=== PATIENT | male | born 1995 | race Caucasian/White ===

== ENCOUNTER 2024-02-12 10:58 | Outpatient (CLI) | payer BC, SELFPAY ==
--- NOTE | ~2024-02-12 | MR_ITS ---
EXAMINATION: MR brain/brain stem wo/w con DATE: 02/12/2024 11:40 INDICATION: Ptosis of eyelid. Right hemiparesis. TECHNIQUE: Magnetic resonance imaging (MRI) of the brain and brainstem was performed without and with 20 mL MultiHance intravenous contrast. COMPARISON: None. FINDINGS: There is no intracranial hemorrhage, acute infarction, or abnormal intracranial mass lesion . The ventricles are normal in size. There is mucosal thickening in the paranasal sinuses. The orbits are normal. The mastoid air cells are normal. IMPRESSION: 1. Normal brain. Reviewed, dictated and finalized at location A. ISH INSTRUCTOR IMPRESSION: 1. Normal brain.
== END 2024-02-12 10:59 | disposition home or self-care (01) ==
PROVIDERS: Visit Provider Physician Assistant
DX: H02.409 Unspecified ptosis of unspecified eyelid (principal)
CPT/HCPCS: 70553; A9577

== ENCOUNTER 2024-02-13 19:46 | Emergency (ER) | payer BC, SELFPAY ==
--- NOTE | ~2024-02-13 | XR_ITS ---
EXAMINATION: XR chest 2V DATE: 02/13/2024 20:09 INDICATION: Shortness of breath. TECHNIQUE: Frontal and lateral views of the chest were obtained. COMPARISON: None. FINDINGS: There is no pneumonia, pleural effusion, or pneumothorax. The heart size is normal. IMPRESSION: 1. No acute cardiopulmonary disease. Reviewed, dictated and finalized at location A. NOLOGY APPLICATIONS TEACHER
[2024-02-13 19:50] VITALS: BP 160/89; PULSE 60; RESP 16; TEMP 37.2; O2SAT 100
--- NOTE | 2024-02-13 19:52 | ECG_ITS ---
Test Date: 2024-02-13 20:02:41 Measurements Intervals [place] Rate: 122 P: 56 [place]: 127 QRS: 30 QRSD: 82 T: 4 QT: 338 QTc: 482 Interpretive Statements SINUS TACHYCARDIA BORDERLINE ST-T WAVE ABNORMALITY- INF/LAT LEADS BASELINE ARTIFACT- I, III, AVR, AVL ABNORMAL ECG No previous ECG available for comparison Electronically Signed On 02-14-2024 07:40:31 AUTOMOBILE SALES REPRESENTATIVE by Zackery Nixon D.O.
[2024-02-13 20:05] LABS: Basophils Absolute Auto 0.1 K/mm3 (0.0-0.1); Basophils Percent Auto 0.6 % (0.2-1.2); Eosinophils Absolute Auto 0.4 K/mm3 (0-0.3); Eosinophils Percent Auto 3.2 % (0-4.4); Hematocrit 51.3 % (42.0-52.0); Hemoglobin 17.6 g/dL (14.0-18.0); Immature Granulocyte Absolute 0.02 K/mm3 (0.00-0.031); Immature Granulocyte Percent A 0.2 % (0-0.5); Lymphocytes Absolute Auto 5.01 K/mm3 (0.9-3.2); Lymphocytes Percent Auto 39.8 % (18.3-44.2); Mean Corpuscular HGB Conc 34.3 g/dl (32-36); Mean Corpuscular Volume 90.5 fl (80-100); Mean Platelet Volume 10.6 fl (7.4-10.4); Monocytes Absolute Auto 0.8 K/mm3 (0.1-0.6); Monocytes Percent Auto 6.3 % (2.6-8.5); Neutrophils Absolute Auto 6.3 K/mm3 (1.3-6.7); Neutrophils Percent Auto 49.9 % (45.5-73.1); Platelet Count Result 249 k/mm3 (150-375); Red Blood Count 5.67 M/mm3 (4.6-6.20); Red Cell Distribution Width 13.1 % (11.5-14.5); White Blood Count 12.6 K/mm3 (4.5-10.0)
[2024-02-13 20:16] LABS: Alanine Aminotransferase 26 U/L (6-50); Albumin Level 4.3 g/dL (3.5-5.1); Alkaline Phosphatase 131 U/L (38-126); Anion Gap 9 mmol/L (4-12); Aspartate Amino Transferase 35 U/L (17-59); Bilirubin,Total 1.1 mg/dL (0.2-1.3); Blood Urea Nitrogen 13 mg/dL (9-20); Calcium 8.7 mg/dL (8.4-10.2); Carbon Dioxide 22 mmol/L (22-30); Chloride 104 mmol/L (98-107); Estimated CRCL calculation 108 ml/min; Estimated Glomerular Filt Rate > 60; Glucose 125 mg/dL (65-110); Potassium 3.8 mmol/L (3.4-5.0); Sodium 135 mmol/L (137-145)
[2024-02-13 23:36] VITALS: BP 142/92; PULSE 103; RESP 15; O2SAT 97
[2024-02-14 00:21] VITALS: BP 147/111; PULSE 105; PULSE 95; RESP 17; O2SAT 100
[2024-02-14 01:20] LABS: Influenza A QL RT-PCR Negative (Negative); Influenza B QL RT-PCR Negative (Negative); RSV RNA, RT-PCR Negative (Negative); SARS-CoV-2 RNA PCR Negative (Negative)
[2024-02-14 02:29] VITALS: BP 142/95; PULSE 83; RESP 16; O2SAT 100
[2024-02-14 02:43] LABS: D Dimer < 0.27 ug/mL (<0.48)
--- NOTE | 2024-02-14 03:05 | ED.SOB ---
HPI - SOB/Dyspnea General Chief Complaint: Shortness of Breath/Dyspnea Stated Complaint: SOB, tingling Time Seen by Provider: 02/14/24 00:11 History of Present Illness HPI Narrative: 28-year-old male presenting to the emergency department chief complaint of shortness of breath. He states for last several days he has been having episodes of shortness of breath that wake him up from sleep. patient states that he has no chest pain or present difficulty breathing while sitting in the emergency department. States he has been evaluated by his primary care provider for some weakness and is being referred to a neurologist. Had an MRI yesterday without any findings. Patient presently is awake alert oriented acting at his baseline state of health. Denies any fever, chills, recent illnesses or injuries. Denies any present chest pain or shortness of breath. No nausea or vomiting. No history of DVT or PE. States that he was told that could be related to anxiety and states that this somewhat does resemble panic attacks. Not any medications for anxiety or depression presently. No history of smoking, asthma Related Data Allergies Allergy/AdvReac Type Severity Reaction Status Date / Time Penicillins Allergy Mild Rash Verified 02/14/24 00:24 Review of Systems Review of Systems: as reviewed above in HPI Exam Narrative: GENERAL: [Well-appearing, well-nourished, and in no acute distress.] HEAD: [Normocephalic, atraumatic.] EYES: [PERRLA and EOMI.] ENT: Nares clear, no rhinorrhea or epistaxis. Mucous membranes moist. NECK: Supple. CHEST: [Clear to auscultation. No respiratory distress.] HEART: [Regular rate and rhythm]. No murmur heard. [Normal peripheral pulses.] ABDOMEN: [Soft, nondistended], [nontender], [No rigidity or guarding] EXTREMITIES: Normal range of motion. [No edema.] SKIN: Warm, dry, no rash. NEURO: [No focal deficits]. Alert and oriented [x3.] PSYCH: anxious mood but normal affect Course Vital Signs Vital signs: Vital Signs Temperature 37.2 C 02/13/24 19:50 Pulse Rate 60 02/13/24 19:50 Respiratory Rate 16 02/13/24 19:50 Blood Pressure 160/89 H 02/13/24 19:50 Pulse Oximetry 100 02/13/24 19:50 Oxygen Delivery Room Air 02/13/24 19:50 Temperature 37.2 C 02/13/24 19:50 Pulse Rate 83 02/14/24 02:29 Respiratory Rate 16 02/14/24 02:29 Blood Pressure 142/95 H 02/14/24 02:29 Pulse Oximetry 100 02/14/24 02:29 Oxygen Delivery Room Air 02/14/24 00:21 MDM - SOB/Dyspnea MDM Narrative Medical decision making narrative: 28-year-old otherwise healthy male presenting to the emergency department for chief complaint of sporadic shortness of breath that wakes him up from sleep. He states that for last several days to potentially weeks he has been having some episodes where he wakens up in the middle of night feeling like he is gasping for breath. States happened today he was concerned that he wanted to get evaluated in the emergency department. Was told previously that was likely related to anxiety or panic attack a states that that does make sense. No history of sleep apnea or MICHELLE according to himself. States that he has been present workup by his primary care provider and neurologist for some weakness in his right upper extremity that occurs when he works out but had negative CT and MRI scans. Has a outpatient neurology appointment coming up. He otherwise appears well not any acute distress, breathing comfortably and speaking in complete full sentences. He has clear breath sounds without any wheezing, prolonged expiratory phase or any concerning accessory breath sounds or accessory muscle use. He has some hypertension low blood pressure 142/95 but of tachycardia, hypoxia, fever. Overall patient appears anxious but otherwise well not any acute distress. Broad workup was ordered with triage imaging and laboratory assessment. I did order a D-dimer at this time given his clear breath sounds with complaints of sporadic shortness of breath. Differential diagnosis is broad but does include viral illness, pneumonia, bronchitis, sleep apnea, panic attacks or panic disorder, less likely thromboembolic process like a PE. Patient's chest x-ray independently reviewed by myself shows no pneumonia pleural effusions pneumothorax or cardiomegaly. No acute cardiopulmonary processes interpreted by radiology. No previous comparable x-rays. Laboratory studies show a very minor leukocytosis of 12.6 With some lymphocytosis with this could be reactive to potential viral cause. Normal hemoglobin, normal platelets. D-dimer test was negative. normal electrolytes, normal renal function panel, glucose mildly elevated 125, normal hepatic function. negative COVID fluid RSV swabs. Given patient's overall well appearance, stable vital signs, unremarkable workup with no acute emergent findings I believe he is stable for outpatient follow-up at this time. Patient was agreeable to this plan of care and reassured by his workup here. Medical Records Attestation: I reviewed the patient's medical records. Lab Data Attestation: I reviewed the patient's lab results. 02/13/24 19:59 02/13/24 19:59 Labs: Lab Results 02/13/24 02/14/24 02/14/24 Range/Units 19:59 00:26 01:58 WBC 12.6 H (4.5-10.0) K/mm3 RBC 5.67 (4.6-6.20) M/mm3 Hgb 17.6 (14.0-18.0) g/dL Hct 51.3 (42.0-52.0) % MCV 90.5 (80-100) fl MCH 31.0 (26-34) pg MCHC 34.3 (32-36) g/dl RDW 13.1 (11.5-14.5) % Plt Count 249 (150-375) k/mm3 MPV 10.6 H (7.4-10.4) fl Immature Gran % (Auto) 0.2 (0-0.5) % Neut % (Auto) 49.9 (45.5-73.1) % Lymph % (Auto) 39.8 (18.3-44.2) % Citrus % (Auto) 6.3 (2.6-8.5) % Eos % (Auto) 3.2 (0-4.4) % Baso % (Auto) 0.6 (0.2-1.2) % Lymph # (Auto) 5.01 H (0.9-3.2) K/mm3 Citrus # (Auto) 0.8 H (0.1-0.6) K/mm3 Eos # (Auto) 0.4 H (0-0.3) K/mm3 Baso # (Auto) 0.1 (0.0-0.1) K/mm3 Abs Immat Gran (auto) 0.02 (0.00-0.031) K/mm3 Absolute Neuts (auto) 6.3 (1.3-6.7) K/mm3 Absolute Nucleated RBC 0.000 (0.0-0.012) K/mm3 Nucleated RBC % 0.0 (0.0-0.2) % D-Dimer < 0.27 (<0.48) ug/mL Sodium 135 L (137-145) mmol/L Potassium 3.8 (3.4-5.0) mmol/L Chloride 104 (98-107) mmol/L Carbon Dioxide 22 (22-30) mmol/L Anion Gap 9 (4-12) mmol/L BUN 13 (9-20) mg/dL Creatinine 1.00 (0.7-1.3) mg/dL Estim Creat Clear Calc 108 ml/min Estimated GFR > 60 (59 - ) Glucose 125 H (65-110) mg/dL Calcium 8.7 (8.4-10.2) mg/dL Total Bilirubin 1.1 (0.2-1.3) mg/dL AST 35 (17-59) U/L ALT 26 (6-50) U/L Alkaline Phosphatase 131 H (38-126) U/L Total Protein 8.0 (6.3-8.2) g/dL Albumin 4.3 (3.5-5.1) g/dL Influenza A (RT-PCR) Negative (Negative) Influenza B (RT-PCR) Negative (Negative) RSV (RT-PCR) Negative (Negative) SARS-CoV-2 RNA (RT-PCR) Negative (Negative) Imaging Data Attestation: I personally reviewed and interpreted this imaging study as follows: Radiologist's impression: Impressions Chest X-Ray 02/13/24 20:10 IMPRESSION: 1. No acute cardiopulmonary disease. Discharge Plan Discharge Clinical Impression: Mild shortness of breath Patient Disposition: Home, Self-Care Condition: Stable Instructions: Antibiotic Form, Dyspnea (ED) Additional Instructions: all your laboratory studies and x-rays were normal, no acute findings or explanation for shortness of breath episodes. The could very well be related to potential anxiety or panic attack or that could also be related to a process such as sleep apnea given that they sometimes wake you up from sleep feeling breathless. Your primary care provider will have to investigate further but no emergent causes discovered today. Follow-up with your primary care provider outpatient or return at any point with any new or worsening concerns. Follow-up/Referrals: PHYSICIAN NOT ON STAFF,NONSTAFF [Primary Care Provider] - Time of Disposition: 03:14
== END 2024-02-14 03:27 | disposition home or self-care (01) ==
PROVIDERS: Emergency Provider Student in an Organized Health Care Education/Training Program
DX: R06.02 Shortness of breath (principal); Z20.822 Contact with and (suspected) exposure to COVID-19; R00.0 Tachycardia, unspecified; R94.31 Abnormal electrocardiogram [ECG] [EKG]
CPT/HCPCS: 36415; 71046; 80053; 85025; 85380; 87637; 93005; 99284